=== PATIENT | female | born 1985 | race Two or more races ===

== ENCOUNTER 2025-03-04 14:29 | Emergency (ER) | payer MEDICAID, OTHER ==
[~2025-03-04] VITALS: Ht 160 cm; Wt 77.0 kg
[2025-03-04 14:30] VITALS: BP 121/89; PULSE 110; RESP 18; TEMP 98.1; O2SAT 95
--- NOTE | 2025-03-04 16:09 | ED.PDOC ---
History of Present Illness HPI Comments This is a 39 year old female presenting to the ED with chief complaint of rib and neck pain. Patient reports that she has lumps to her bilateral ribs with associated pain and swelling to her neck. 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 Patient requests only pain medication at this time, has upcoming appointment with general surgeon at the end of the month. Patient then stated that she will be leaving the ED at this time without medication or imaging studies performed. Chief Complaint: Rib Pain Time Seen by MD: 16:07 Reviewed Notes: Nurses Notes, Medications, Allergies Allergies: Coded Allergies: NO KNOWN ALLERGIES (Unverified , 03/04/25) Information Source: Patient Mode of Arrival: Ambulatory Severity: Mild Timing: Days Duration: Since onset Prehospital treatment: None Medication Refill: For: Pain Past Medical History Past Medical History (Other): Lipoma Surgical History: Denies all surgeries [employer] History: Denies all [employer] Hx, No Pertinent [employer]OR History Social History Smoker: Non-Smoker Alcohol: Denies ETOH Use Drugs: Denies Drug Use Lives In: Home Constitutional: denies: chills, diaphoresis, fatigue, fever, malaise, sweats, weakness, others EENTM: denies: blurred vision, double vision, ear bleeding, ear discharge, ear drainage, ear pain, ear ringing, eye pain, eye redness, hearing loss, mouth pain, mouth swelling, nasal discharge, nose bleeding, nose congestion, nose pain, photophobia, tearing, throat pain, throat swelling, voice changes, others Respiratory: denies: cough, hemoptysis, orthopnea, SOB at rest, shortness of breath, SOB with excertion, stridor, wheezing, others Cardiovascular: denies: chest pain, dizzy spells, diaphoresis, Dyspnea on exertion, edema, irregular heart beat, left arm pain, lightheadedness, palp itations, PND, syncope, others Gastrointestinal: denies: abdomen distended, abdominal pain, blood streaked bowels, constipated, diarrhea, dysphagia, difficulty swallowing, hematemesis, melena, nausea, poor appetite, poor fluid intake, rectal bleeding, rectal pain, vomiting, others Genitourinary: denies: abnormal vagina bleeding, burning, dyspareunia, dysuria, flank pain, frequency, hematuria, incontinence, pain, , vagina discharge, urgency, others Neurological: denies: dizziness, fainting, headache, left sided numbness, left sided weakness, numbness, paresthesia, pre-existing deficit, right sided numbness, right sided weakness, seizure, speech problems, tingling, tremors, weakness, others Musculoskeletal: reports: others (Bilateral rib pain, left neck pain); denies: back pain, gout, joint pain, joint swelling, muscle pain, muscle stiffness, neck pain Integumetry: denies: bruises, change in color, change in hair/nails, dryness, laceration, lesions, lumps, rash, wounds, others Allergic/Immunocompromised: denies: Difficulty Healing, Frequent Infections, Hives, Itching, others Hematologic/Lymphatic: denies: anemia, blood clots, easy bleeding, easy bruising, swollen glands, others Endocrine: denies: excessive hunger, excessive sweating, excessive thirst, excessive urination, flushing, intolerance to cold, intolerance to heat, unexplained weight gain, unexplained weight loss, others Psychiatric: denies: anxiety, bipolar disorder, depression, hopeless, panic disorder, schizophrenia, sleepless, suicidal, others All Other Systems: Reviewed and Negative Physical Exam General Appearance: Moderate Distress, Normal HEENT: Normal ENT Inspection, Pharynx Normal, TMs Normal Neck: Full Range of Motion, Non-Tender, Normal, Normal Inspection Respiratory: Chest Non-Tender, Lungs Clear, No Accessory Muscle Use, No Re spiratory Distress, Normal Breath Sounds Cardiovascular: No Edema, No JVD, No Murmur, No Gallop, Normal Peripheral Pulses, Regular Rate/Rhythm Breast Exam: Deferred Gastrointestinal: No Organomegaly, Non Tender, No Pulsatile Mass, Normal Bowel Sounds, Soft Genitalia: Deferred Pelvic: Deferred Rectal: Deferred Extremities: No calf tenderness, Normal capillary refill, Normal inspection, Normal range of motion, Non-tender, No pedal edema Musculoskeletal : Apperance: Normal Neurologic: Alert, 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 Was a procedure done?: No Differential Dx Considerations may include: Muscle skeletal pain Muscle strain X-Ray, Labs, Meds, VS Vital Signs Date Time Temp Pulse Resp B/P (MAP) Pulse Ox O2 Delivery O2 Flow Rate FiO2 03/04/25 14:30 98.1 110 18 121/89 95 98.1 Patient alert. Complaining of vague pain all over. Mainly in the neck left side of the lower chest. Vitals stable. She is emotional. Explained to the patient pathophysiology of the body. No acute process. Abdomen is soft nontender. No neck swelling. Continue monitoring. Time of 1ST Reevaluation: 17:07 Reevaluation 1ST: Unchanged Patient Education/Counseling: Diagnosis, Treatment Family Education/Counseling: No Family Present SEPSIS Sepsis Screen Date sepsis recognized/suspect: Mar 04, 2025 Time Sepsis recognized/suspect: 1433 Recent Procedure: No On Antibiotic Therapy: No Respiratory Rate >20: No Heart Rate >90: Yes Temp<36 C (96.8 F) or >38.3 C: No SBP <90 or MAP <65 mmHG: No New Acute Mental Status Change: No Is the patient on CPAP, BIPAP,: No Vital Signs Date Time Temp Pulse Resp B/P (MAP) Pulse Ox O2 Delivery O2 Flow Rate FiO2 03/04/25 14:30 98.1 110 18 121/89 95 98.1 Departure 1 Departure Time of Disposition: 16:14 Impression: Primary Impression: Musculoskeletal pain Disposition: 30 STILL A PATIENT Condition: Good Critical Care Note Critical Care Time?: No Stability Stability form required: No Heart Score Heart Score: Heart Score Response (Comments) Value History N/A 0 EKG N/A 0 Age N/A 0 Risk Factors N/A 0 Troponin N/A 0 Total 0 I personally scribed for VADIM DELEON MD ([email or web address]) on 03/04/25 at 16:09. Electronically submitted by Dashawn Lehman ([email or web address]). VADIM DELEON MD Mar 04, 2025 16:09
== END 2025-03-04 16:15 | disposition left against medical advice (07) ==
LOC: ER 14:29
DX: R07.81 Pleurodynia (principal); M54.2 Cervicalgia; M79.18 Myalgia, other site